=== PATIENT | male | born 1975 | race Caucasian/White ===

== ENCOUNTER 2016-06-13 23:54 | Emergency (ER) | payer BC, MEDICAID ==
[~2016-06-13] VITALS: Ht 185.4 cm; Wt 152.0 kg
[2016-06-14] VITALS: BP 147/101
--- NOTE | 2016-06-14 01:41 | NUR ---
PATIENT TO BED 6.
--- NOTE | 2016-06-14 01:55 | NUR ---
PT IS 40/M BIB TO ED C/O PRODUCTIVE COUGH AND CONGESTION, ABD PAIN ON BL SIDES AND SUBSTERNAL CP SINCE WEDNESDAY. HX DM AND HTN DENIES N/V/D; SKIN IS PINK/WARM/DRY; AAOX4 WITH EVEN AND STEADY GAIT; LUNGS CLEAR BL; HR EVEN AND REGULAR; PT DENIES ANY FEVER, SOB AT THIS TIME; PATIENT STATES PAIN OF 8/10 AT THIS TIME; VSS; PATIENT POSITIONED FOR COMFORT; HOB ELEVATED; BEDRAILS UP X2; BED DOWN. ER MD MADE AWARE OF PT STATUS.
--- NOTE | 2016-06-14 03:01 | NUR ---
Patient being evaluated by physician at bedside.
[2016-06-14] MEDS ORDERED: KETOROLAC 60 MG/2 ML VIAL IM ONE (03:10)
[2016-06-14 03:42] VITALS: BP 136/94
--- NOTE | 2016-06-14 03:42 | NUR ---
Patient discharged with v/s stable. Written and verbal after care instructions given and explained. Patient alert, oriented and verbalized understanding of instructions. Ambulatory with steady gait. All questions addressed prior to discharge. ID band removed. Patient advised to follow up with PMD. Rx of MOTRIN, SUDAFED, PREDNISONE given. Patient educated on indication of medication including possible reaction and side effects. Opportunity to ask questions provided and answered.
== END 2016-06-14 03:42 | disposition home or self-care (01) ==
LOC: MED 23:54
DX: J11.1 Influenza due to unidentified influenza virus with other respiratory manifestations (principal); E11.9 Type 2 diabetes mellitus without complications; I10 Essential (primary) hypertension
CPT/HCPCS: 93005; 96372; 99283; J1885

== ENCOUNTER 2016-07-21 01:35 | Emergency (ER) | payer MEDICAID ==
[~2016-07-21] VITALS: Ht 185.4 cm; Wt 152.0 kg
[2016-07-21 01:47] VITALS: BP 152/86
--- NOTE | 2016-07-21 01:55 | NUR ---
Patient ambulated to bed 05.
--- NOTE | 2016-07-21 02:00 | NUR ---
PATIENT PRESENTS TO ED WITH RECTAL PAIN SINCE WEDNESDAY . PT STATES THE PAIN HAS BEEN WORSENING SINCE THEN WITH ICE BEING THE ONLY RELIEF . DENIES N/V/D; SKIN IS PINK/WARM/DRY; AAOX4 WITH EVEN AND STEADY GAIT; LUNGS CLEAR BL; HR EVEN AND REGULAR; PT DENIES ANY FEVER, CP, SOB, OR COUGH AT THIS TIME; PATIENT STATES PAIN OF 10/10 AT THIS TIME; VSS; PATIENT POSITIONED FOR COMFORT; HOB ELEVATED; BEDRAILS UP X2; BED DOWN. ER MD MADE AWARE OF PT STATUS. SIGNIFICANT OTHER AT BEDSIDE AT THIS TIME
--- NOTE | 2016-07-21 02:49 | NUR ---
Dr. Mccullough evaluating patient at bedside.
[2016-07-21] MEDS ORDERED: KETAMINE 500 MG/5 ML VIAL IVP ONE (03:00)
[2016-07-21] MEDS ORDERED: MIDAZOLAM 2 MG/2 ML VIAL IVP ONE (03:00)
[2016-07-21] MEDS ORDERED: LIDOCAINE 1% 500 MG/50 ML VIAL INJ ONE (03:00)
--- NOTE | 2016-07-21 03:01 | NUR ---
Patient moved to bed 02.
--- NOTE | 2016-07-21 03:14 | NUR ---
I&D BEGAN, PERFORMED BY BERNIE AZEVEDO, FINISHED AT 1144
--- NOTE | 2016-07-21 03:15 | NUR ---
Dr. Mccullough, RT, charge nurse Michelle at bedside for procedure.
--- NOTE | 2016-07-21 03:27 | NUR ---
PT AWAKE, ALERT, ORIENTED, PT WAS ABLE TO RESPOND CORRECTLY TO TIME, PLACE, DATE, PRESIDENT, AND NAME AND . PT CALM, RELAX, COOPERATIVE, VS STABLE, IS AT BEDSIDE
--- NOTE | 2016-07-21 03:31 | NUR ---
ER MD DR AZEVEDO IS AT BEDSIDE, EXPLAINING PROCEDURE TO PT AND
[2016-07-21] MEDS ORDERED: KETOROLAC 30 MG/ML VIAL IVP ONE (03:45)
[2016-07-21] MEDS ORDERED: fentaNYL 0.05 MG/ML VIAL IVP ONE (04:15)
--- NOTE | 2016-07-21 04:50 | NUR ---
IV removed, catheter intact and site benign. Applied folded 4x4 gauze and tape to stop bleeding.
[2016-07-21 05:00] VITALS: BP 152/99
--- NOTE | 2016-07-21 05:00 | NUR ---
Patient discharged with v/s stable. Written and verbal after care instructions given and explained. Patient alert, oriented and verbalized understanding of instructions. Ambulatory with steady gait. All questions addressed prior to discharge. ID band removed. Patient advised to follow up with PMD. Rx of TYLENOL #3 TAB, BACTRIM DS, AND MOTRIN 800MG given. Patient educated on indication of medication including possible reaction and side effects. Opportunity to ask questions provided and answered.
== END 2016-07-21 05:00 | disposition home or self-care (01) ==
LOC: MED 01:35
DX: K61.1 Rectal abscess (principal); E11.9 Type 2 diabetes mellitus without complications; I10 Essential (primary) hypertension
CPT/HCPCS: 46040; 96374; 96375; 99152; 99285; J1885; J2001; J2250; J3010; J7030

== ENCOUNTER 2019-01-26 23:47 | Emergency (ER) | payer SELFPAY ==
[~2019-01-26] VITALS: Ht 185.4 cm; Wt 147.0 kg
[2019-01-27 00:27] VITALS: BP 116/72
--- NOTE | 2019-01-27 00:37 | NUR ---
PT AMBULATED TO THE LOBBY WITH VSS.
--- NOTE | 2019-01-27 00:47 | NUR ---
PT AMBULATED TO BED 12.
--- NOTE | 2019-01-27 01:20 | NUR ---
43/M PRESENTS TO ED, C/O R SIDED NECK AND R SHOULDER, X8HRS S/P SHOWERING. NO DEFORMITY, SWELLING, BRUISING OR ERYTHEMA NOTED ON R SHOULDER OR ARM. PT DENIES CP, SOB, N/V. NO FACIAL DROOP, CLEAR SPEECH, +2 ALL PERIPHERAL STRENGTH. PT AOX4, PERRLA 3MM, SKIN NORMAL WARM AND DRY, RR EVEN AND UNLABORED. LUNG SOUNDS CLEAR BL. HR EVEN AND REGULAR. HX HTN, DM, CASEY'S PALSY.
[2019-01-27] MEDS ORDERED: CYCLOBENZAPRINE 10 MG TAB PO ONE (01:35)
[2019-01-27] MEDS ORDERED: KETOROLAC 30 MG/ML VIAL IVP ONE (01:35)
--- NOTE | 2019-01-27 01:40 | NUR ---
EKG PERFORMED AT BEDSIDE
[2019-01-27 01:50] LABS: BASOPHILS % (AUTO) 0.3 % (0.0-2.0); EOSINOPHILS # (AUTO) 0.1 K/uL (0-0.4); EOSINOPHILS % (AUTO) 1.6 % (0.0-4.0); HEMATOCRIT 41.8 % (36-52); HEMOGLOBIN 13.7 g/dL (12.0-18.0); LYMPHOCYTES # (AUTO) 1.4 K/uL (2.0-11.5); LYMPHOCYTES % (AUTO) 17.1 % (20.5-51.1); MEAN CORPUSCULAR HEMOGLOBIN 27 pg (27-31); MEAN CORPUSCULAR HGB CONC 33 g/dL (33-37); MEAN CORPUSCULAR VOLUME 83.7 fL (80-94); MONOCYTES # (AUTO) 0.6 K/uL (0.8-1.0); MONOCYTES % (AUTO) 6.9 % (1.7-9.3); NEUTROPHILS % (AUTO) 74.1 % (42.2-75.2); PLATELET COUNT (AUTO) 270 K/uL (140-450); RED BLOOD CELL COUNT(AUTO) 4.99 MIL/uL (4.20-6.10); RED CELL DISTRIBUTION WIDTH 13.8 % (11.6-13.7); WHITE BLOOD COUNT (AUTO) 8.1 K/uL (4.8-10.8)
[2019-01-27 02:08] LABS: ALBUMIN 3.2 g/dL (3.4-5.0); ANION GAP 12.4 (8-16); CARBON DIOXIDE 26.5 mmol/L (21-32); CREATININE 1.3 mg/dL (0.7-1.3); POTASSIUM 3.9 mmol/L (3.5-5.1); TOTAL BILIRUBIN 0.4 mg/dL (0.0-1.0)
--- NOTE | 2019-01-27 03:30 | NUR ---
PT SLEEPING IN BED NO SIGNS OF RESP DISTRESS. AT BEDSIDE. NO PAIN REPORTED AT THIS TIME. WILL CONTINUE TO MONITOR.
[2019-01-27 04:46] VITALS: BP 116/72
--- NOTE | 2019-01-27 04:46 | NUR ---
Patient discharged with v/s stable. Written and verbal after care instructions given and explained. Patient alert, oriented and verbalized understanding of instructions. Ambulatory with steady gait. All questions addressed prior to discharge. ID band removed. Patient advised to follow up with PMD. Rx of IBUPROFEN, FLEXERIL given. Patient educated on indication of medication including possible reaction and side effects. Opportunity to ask questions provided and answered.
== END 2019-01-27 04:46 | disposition home or self-care (01) ==
LOC: MED 23:47
DX: R20.0 Anesthesia of skin (principal); R20.2 Paresthesia of skin; M43.6 Torticollis; E11.9 Type 2 diabetes mellitus without complications; I10 Essential (primary) hypertension; F17.290 Nicotine dependence, other tobacco product, uncomplicated; E66.9 Obesity, unspecified; Z68.41 Body mass index [BMI] 40.0-44.9, adult
CPT/HCPCS: 36415; 71045; 80053; 84484; 85025; 93005; 96374; 99283; J1885; Q0092

== ENCOUNTER 2019-02-16 15:58 | Emergency (ER) | payer MEDICAID ==
[~2019-02-16] VITALS: Ht 193 cm; Wt 147.4 kg
[2019-02-16 16:16] VITALS: BP 131/85
--- NOTE | 2019-02-16 16:25 | NUR ---
Pt placed in chair B.
--- NOTE | 2019-02-16 16:30 | NUR ---
43 Y/O M PRESENTS TO THE ER C/O BODY ACHES AND JOINT PAIN SINCE HE WOKE UP THIS MORNING. PER PT HE FEELS HOT THEN HAS CHILLS. PT HAS N/V/D. PAIN LEVEL 10/10, ACHING, "I FEEL LIKE SOMEONE BEAT ME UP WITH A BAT." PER PT HE HAS NOT EATEN SINCE LAST NIGHT BECAUSE HE CAN'T HOLD ANYTHING DOWN. PT STATES HE HAS BURNING SENSATION IN HIS CHEST WHEN TAKING DEEP BREATHES. PT STATES HE NEEDS MEDICATION REFILLS BECAUSE HE IS GOING THROUGH AN INSURANCE ISSUE. RX: METFORMIN HCL 500MG BID, LOSARTAN 50MG QD, AND OMEPRAZOLE 20MG QD ALLERGIES: NKA MED HX: DM, HTN, GERD, AND HYPERLIPIDEMIA
--- NOTE | 2019-02-16 16:46 | NUR ---
PT MOVED TO BED 3.
[2019-02-16] MEDS ORDERED: NACL 0.9% 1,000 ML IV ONE (17:15)
[2019-02-16] MEDS ORDERED: ONDANSETRON 4 MG/2 ML VIAL IVP ONE (17:15)
[2019-02-16 17:36] LABS: BASOPHILS % (AUTO) 0.1 % (0.0-2.0); EOSINOPHILS % (AUTO) 0.3 % (0.0-4.0); HEMATOCRIT 47.1 % (36-52); HEMOGLOBIN 15.8 g/dL (12.0-18.0); LYMPHOCYTES # (AUTO) 0.2 K/uL (2.0-11.5); LYMPHOCYTES % (AUTO) 2.3 % (20.5-51.1); MEAN CORPUSCULAR HEMOGLOBIN 28 pg (27-31); MEAN CORPUSCULAR HGB CONC 34 g/dL (33-37); MEAN CORPUSCULAR VOLUME 82.8 fL (80-94); MONOCYTES # (AUTO) 0.4 K/uL (0.8-1.0); MONOCYTES % (AUTO) 3.9 % (1.7-9.3); NEUTROPHILS # (AUTO) 9.7 K/uL (1.8-7.7); NEUTROPHILS % (AUTO) 93.4 % (42.2-75.2); PLATELET COUNT (AUTO) 275 K/uL (140-450); RED BLOOD CELL COUNT(AUTO) 5.69 MIL/uL (4.20-6.10); RED CELL DISTRIBUTION WIDTH 13.7 % (11.6-13.7); WHITE BLOOD COUNT (AUTO) 10.4 K/uL (4.8-10.8)
[2019-02-16 18:04] LABS: ALBUMIN 3.3 g/dL (3.4-5.0); ANION GAP 13.2 (8-16); CARBON DIOXIDE 26.3 mmol/L (21-32); CREATININE 1.1 mg/dL (0.7-1.3); POTASSIUM 4.5 mmol/L (3.5-5.1); TOTAL BILIRUBIN 0.8 mg/dL (0.0-1.0)
--- NOTE | 2019-02-16 18:30 | NUR ---
PT UNABLE TO GIVE URINE AT THIS TIME
--- NOTE | 2019-02-16 19:20 | NUR ---
Pt report given to HA Lew. Transfer of care at this time.
--- NOTE | 2019-02-16 19:21 | NUR ---
RECEIVED REPORT FROM HA WING. WILL BE COVERING FOR PRIMARY RN FOR LUNCH.
[2019-02-16] MEDS ORDERED: HYDROcodone/APAP 5/325 MG 1 TAB TAB PO ONE (19:30)
[2019-02-16 19:38] LABS: APPEARANCE,URINE CLEAR (CLEAR); BILIRUBIN,URINE NEGATIVE (NEGATIVE); BLOOD, URINE NEGATIVE (NEGATIVE); COLOR,URINE YELLOW (YELLOW); LEUKOCYTE ESTERASE ,URINE NEGATIVE (NEGATIVE); NITRITE, URINE NEGATIVE (NEGATIVE); PH,URINE 5.5 (5.0-9.0); UGLUCOSE 3+ (NEGATIVE)
[2019-02-16 19:44] LABS: BARBITURATE, URINE NEG. ng/ml (NEG <=200); BENZODIAZEPINE, URINE NEG. ng/mL (NEG <=200); CANNABINOID, URINE NEG. ng/mL (NEG <=50); COCAINE, URINE NEG. ng/mL (NEG <=300); OPIATE, URINE NEG. ng/mL (NEG <=2000); PHENCYCLIDINE SCREEN,URINE NEG. ng/mL (NEG <=25)
--- NOTE | 2019-02-16 19:44 | NUR ---
PT AMBULATED TO RESTROOM
--- NOTE | 2019-02-16 20:25 | NUR ---
DR. AREVALO EVALUATING PT AT BEDSIDE.
[2019-02-16] MEDS ORDERED: ACETAMINOPHEN EXTRA STRENGTH 500 MG TAB PO ONE (20:40)
[2019-02-16] MEDS ORDERED: ACETAMINOPHEN EXTRA STRENGTH 500 MG TAB ONE (20:43)
[2019-02-16 20:53] VITALS: BP 132/69
--- NOTE | 2019-02-16 20:53 | NUR ---
dPatient discharged with v/s stable. Written and verbal after care instructions given and explained. Pt encouraged to rest and drink plenty of fluids. Patient alert, oriented and verbalized understanding of instructions. Ambulatory with steady gait. All questions addressed prior to discharge. ID band removed. Patient advised to follow up with PMD. Rx of zofran 4mg, bentyl 20mg, lomotil 2.5mg losartan potassium 25mg, metformin hydrochloride 500mg and omeprazole 20mg was given. Patient educated on indication of medication including possible reaction and side effects. Opportunity to ask questions provided and answered.
== END 2019-02-16 20:53 | disposition home or self-care (01) ==
LOC: MED 15:58
DX: K52.9 Noninfective gastroenteritis and colitis, unspecified (principal); R07.89 Other chest pain; E11.9 Type 2 diabetes mellitus without complications; K21.9 Gastro-esophageal reflux disease without esophagitis; E78.5 Hyperlipidemia, unspecified; Z76.0 Encounter for issue of repeat prescription
CPT/HCPCS: 36415; 71045; 80053; 80305; 81003; 82948; 83690; 84484; 85025; 87804; 93005; 96361; 96374; 99284; J2405; J7030; Q0092